=== PATIENT | male | born 1940 | race Caucasian/White ===

== ENCOUNTER 2021-08-02 09:39 | Inpatient (IN) | payer MEDICARE, OTHER ==
[~2021-08-02] VITALS: Ht 167.6 cm; Wt 52.6 kg
--- NOTE | 2021-08-02 09:45 | NUR ---
MD@bedside, medical screening exam in progress
[2021-08-02 10:14] LABS: POTASSIUM 3.7 mmol/L (3.5-5.1)
[2021-08-02 10:24] LABS: MEAN CORPUSCULAR HEMOGLOBIN 29.2 uug (23.8-33.4); MEAN CORPUSCULAR VOLUME 89.9 fL (73.0-96.2); PLATELET COUNT (AUTO) 205 K/uL (152-348)
[2021-08-02 10:27] LABS: BILIRUBIN,DIRECT 0.2 mg/dL (0.0-0.2); BILIRUBIN,TOTAL 0.9 mg/dL (0.2-1.0)
--- NOTE | 2021-08-02 11:53 | NUR ---
Patient is resting comfortably on gurney with eyes closed, pending available telemetry nurse & [email or web address] time. Lights dimmed. Comfort and safety measures maintained. Granddaughter [email or web address]. Lunch tray was followed-up.
--- NOTE | 2021-08-02 12:52 | NUR ---
Patient is eating lunch. [email or web address].
[2021-08-02] MEDS ORDERED: ACETAMINOPHEN 325 MG TABLET PO PRN (13:00)
[2021-08-02] MEDS ORDERED: MAGNESIUM HYDROXIDE 30 ML LIQUID UDC PO PRN (13:00)
[2021-08-02] MEDS ORDERED: ALBUTEROL SULFATE 2.5 MG/3 ML NEBU NEB PRN (13:00)
[2021-08-02] MEDS ORDERED: ONDANSETRON 4 MG/2 ML VIAL IV PRN (13:00)
[2021-08-02] MEDS ORDERED: ENALAPRILAT DIHYDRATE 1.25 MG/1 ML VIAL IV PRN (13:00)
[2021-08-02] MEDS ORDERED: MORPHINE SULFATE 2 MG/1 ML DISP.SYRIN IV PRN (13:00)
--- NOTE | 2021-08-02 14:30 | NUR ---
received from ER per w/c awake alert and oriented, speaks German, information for assessment taken from Arlette- granddaughter, assessment done, oriented to bed controls and room set-up, on 6 liters of 02 per mask-sat at 98%, tele applied- SR 80's, safety measures initiated, call light within reach
[2021-08-02 14:40] VITALS: BP 155/83
[2021-08-02] MEDS: FUROSEMIDE 20 MG/2 ML VIAL IV SCH ×2 (15:15→20:35)
--- NOTE | 2021-08-02 19:00 | NUR ---
in stable condition- 02 at 7 liters/ mask sat at 98%, all needs attended and met, voided per urinal, BP prn meds given for Elevated BP, call light within reach
[2021-08-02] MEDS ORDERED: levoFLOXacin 500 MG/D5W 500 MG in PREMIXED 1 EACH IV SCH (20:00)
[2021-08-02 20:20] VITALS: BP 147/69
[2021-08-02] MEDS: DOCUSATE SODIUM 100 MG CAPSULE PO SCH (20:41)
--- NOTE | 2021-08-02 20:41 | NUR ---
Pt down at CT, will administer Levaquin when patient returns
[2021-08-02] MEDS: METOPROLOL TARTRATE 25 MG TABLET PO SCH (21:13)
[2021-08-03 00:05] VITALS: BP 144/67
--- NOTE | 2021-08-03 05:54 | NUR ---
Pt slept throughout the night. Titrated down to 3L NC, tolerating well. Denies SOB. No distress noted. IV site is intact. No other issues or concerns at this time, will endorse to day shift.
[2021-08-03] MEDS: PANTOPRAZOLE SODIUM 40 MG TABLET.DR PO SCH (06:35)
[2021-08-03 06:55] LABS: HEMATOCRIT 40.2 % (36.7-47.1); MEAN CORPUSCULAR HEMOGLOBIN 29.3 uug (23.8-33.4); MEAN CORPUSCULAR VOLUME 88.7 fL (73.0-96.2); PLATELET COUNT (AUTO) 172 K/uL (152-348)
[2021-08-03 07:13] LABS: BILIRUBIN,TOTAL 0.8 mg/dL (0.2-1.0); MAGNESIUM 2.2 mg/dL (1.8-2.4); PHOSPHOROUS 3.6 mg/dL (2.5-4.9); POTASSIUM 3.8 mmol/L (3.5-5.1); TOTAL PROTEIN, SERUM 6.6 g/dL (6.4-8.2)
[2021-08-03 07:18] LABS: THYROID STIMULATING HORMONE 0.015 mIU/mL (0.358-3.740)
--- NOTE | 2021-08-03 07:30 | NUR ---
received patient laying in bed in no apparent distress. patient is on 2 via n/c at 3L o2 at 93%. Patient is alert and orient, language barrier present, able to understand simple commands. Patient with left hand gauge [address] patent, dressing clean and dry, on saline lock. patient with no c/o pain or discomfort at this time. respirations even and non-labored, 0 c/o sob. reminded to use call light for help, call light within reach, urinal within reach, bed side table within reach. bed at lowest position with side rails upx2, will monitor.
[2021-08-03] MEDS: METOPROLOL TARTRATE 25 MG TABLET PO SCH (09:46)
[2021-08-03] MEDS: FUROSEMIDE 20 MG/2 ML VIAL IV SCH ×2 (09:46→20:58)
[2021-08-03 10:54] VITALS: BP 116/55
--- NOTE | 2021-08-03 11:11 | NUR ---
returned call to Arlette WILLIAMSON, phone appears to be turned off.
--- NOTE | 2021-08-03 11:20 | NUR ---
called Rodney family member, phone went to voicemail, message was left, pending call back
--- NOTE | 2021-08-03 11:30 | NUR ---
Dr. Fofana in unit, speaking to Arlette regarding consent for ultrasound guided thoracentesis, consent obtained with second RN witness. Radiology informed that consent is signed, per Radiology procedure will be done at 1500.
--- NOTE | 2021-08-03 15:42 | NUR ---
Dr. Self made aware [facility] per Dr. Timmons no studies to be performed on pleural fluid.
--- NOTE | 2021-08-03 15:43 | NUR ---
s/p thoracentesis, patient is stable v/s wnl, at this time. remains on o2 at 3l with spo2 93-94, rr even and non-labored, no c.o sob. No c.o pain at this time.
[2021-08-03 15:54] VITALS: BP 142/71
[2021-08-03] MEDS ORDERED: ALBUMIN HUMAN 25% 50 ML IV ONE (16:30)
--- NOTE | 2021-08-03 16:30 | NUR ---
albumin administered and tolerated well.
[2021-08-03] MEDS ORDERED: levoFLOXacin 500 MG TABLET PO SCH (20:00)
[2021-08-03 20:15] VITALS: BP 153/74
[2021-08-03] MEDS: DOCUSATE SODIUM 100 MG CAPSULE PO SCH (20:58)
[2021-08-04 04:20] VITALS: BP 127/58
--- NOTE | 2021-08-04 04:29 | NUR ---
Pt slept throughout the night. Denies SOB. No distress noted. IV site intact. SR on tele. No other issues or concerns at this time, will endorse to day shift.
[2021-08-04] MEDS: PANTOPRAZOLE SODIUM 40 MG TABLET.DR PO SCH (06:04)
--- NOTE | 2021-08-04 07:47 | NUR ---
received patient laying in bed in no apparent distress. patient is awake and oriented. currently on 2L via n/c, rr even and non-labored. Iv site to left hand 20g in place and patient. patient denies any pain or discomfort at this time. reminded to used the call light for help, side rails up x2.
[2021-08-04] MEDS: FUROSEMIDE 20 MG/2 ML VIAL IV SCH (08:41)
[2021-08-04 08:52] VITALS: BP 136/65
[2021-08-04] MEDS ORDERED: ATOR40TA PO (09:09)
[2021-08-04] MEDS ORDERED: LEVO150T PO (09:09)
[2021-08-04] MEDS ORDERED: ALBU2.5V7 NEB (09:09)
[2021-08-04] MEDS ORDERED: METO25TA3 PO (09:09)
[2021-08-04] MEDS ORDERED: AMLO10TA4 PO (09:09)
[2021-08-04] MEDS ORDERED: FAMO-132 PO (09:09)
[2021-08-04] MEDS ORDERED: FURO-151 PO (09:09)
[2021-08-04] MEDS ORDERED: METF-494 PO (09:09)
[2021-08-04] MEDS ORDERED: LEVO500T90 PO (09:09)
[2021-08-04] MEDS ORDERED: POTA10CA43 PO (09:09)
--- NOTE | 2021-08-04 09:22 | NUR ---
Discharge order in place, received a call by clair asking to peanut picker patient before 10am, called back and explained that the doctor is working on the discharge orders at the moment and that i cant guarantee a peanut picker at 10am.
--- NOTE | 2021-08-04 10:15 | NUR ---
Arlette returned call, discharge summary complete, patient speaking with Arlette on phone, explanation of new medication orders given to both Arlette and patient, they both state understanding, belonging list signed, iv removed slight bleeding noted, pressure placed onto site dressing put in place. Patient placed on w/c and wheeled downstairs where Arlette's parents picked up patient. Dr. meehan in [facility] at time and aware of discharge. patient helped onto car, stable gaits. At time of discharge vitals are bp: 136/65 p: 67 rr: 17, t: 98.5, spo2 96% on 2L and 92-93 on r/a. Patient with respirations even and non-labored, not experienced any sob or chest pain. reminded to f/u with primary health care provider and to return to nearest ER or call 911 if symptoms worsen.
== END 2021-08-04 10:00 | disposition hospice, home (50) | DRG 189 ==
LOC: ER 09:39 → TELE3 13:54 → MEDSURG3 08-03 11:57 → TELE3 08-03 13:00
PROVIDERS: ADMIT Internal Medicine; ATTEND Internal Medicine
PROC: 0W9930Z Drainage of Right Pleural Cavity with Drainage Device, Percutaneous Approach (ICD-10-PCS; principal; 2021-08-03)
DX: J96.01 Acute respiratory failure with hypoxia (principal); G92.8 Other toxic encephalopathy; J18.9 Pneumonia, unspecified organism; C78.02 Secondary malignant neoplasm of left lung; C78.01 Secondary malignant neoplasm of right lung; C79.51 Secondary malignant neoplasm of bone; D68.69 Other thrombophilia; C79.72 Secondary malignant neoplasm of left adrenal gland; C79.71 Secondary malignant neoplasm of right adrenal gland; J91.0 Malignant pleural effusion; Z68.1 Body mass index [BMI] 19.9 or less, adult; C73 Malignant neoplasm of thyroid gland; I11.0 Hypertensive heart disease with heart failure; I50.9 Heart failure, unspecified; E11.9 Type 2 diabetes mellitus without complications; E78.5 Hyperlipidemia, unspecified; F41.9 Anxiety disorder, unspecified; Z20.822 Contact with and (suspected) exposure to COVID-19; R62.7 Adult failure to thrive; N40.0 Benign prostatic hyperplasia without lower urinary tract symptoms; Z85.850 Personal history of malignant neoplasm of thyroid; E89.0 Postprocedural hypothyroidism; I27.20 Pulmonary hypertension, unspecified; I34.0 Nonrheumatic mitral (valve) insufficiency; Z74.09 Other reduced mobility; Z99.81 Dependence on supplemental oxygen; Z79.84 Long term (current) use of oral hypoglycemic drugs; I49.3 Ventricular premature depolarization
CPT/HCPCS: 32555; 36415; 70030-TC; 71045; 71250; 83550; 83735; 84100; 84443; 85025; 85730; 93005; 93307; A4663; G0378; J1940; J1956; J3490; J7040; J7050; P9047